=== PATIENT | female | born 1955 | race Caucasian/White ===

== ENCOUNTER 2022-02-09 11:00 | Emergency (ER) | payer MEDICARE, OTHER, SELFPAY ==
--- NOTE | 2022-02-09 11:01 | ED.SKABFB ---
HPI - Skin/Abscess/Foreign Bdy General Chief complaint: Wound/Laceration Stated complaint: insect bite Time Seen by Provider: 02/09/22 11:01 Source: patient Mode of arrival: ambulatory Limitations: no limitations History of Present Illness HPI narrative: Ms. Flores is a 66-year-old female patient presenting to the clinic today with complaints of possible insect bite to her right forearm that occurred yesterday. She reports she woke up yesterday morning and noticed a possible insect bite to the right forearm, redness around the bite began streaking down her arm yesterday afternoon and has become worse. She denies any fever or chills. Reports the area is itchy and mildly painful Related Data Home Medications Medication Instructions Recorded Confirmed cetirizine 10 mg tablet (Zyrtec) 10 mg PO DAILY 12/12/21 12/12/21 hydroxychloroquine 200 mg tablet 200 mg PO DAILY 12/12/21 12/12/21 (Plaquenil) meloxicam 15 mg tablet 15 mg PO DAILY 12/12/21 12/12/21 nifedipine 30 mg tablet,extended 30 mg PO DAILY 12/12/21 12/12/21 release omeprazole 20 mg capsule,delayed 20 mg PO DAILY 12/12/21 12/12/21 release Allergies Allergy/AdvReac Type Severity Reaction Status Date / Time codeine Allergy Unknown Vomiting Verified 12/12/21 16:35 Review of Systems Review of Systems: Pertinent positives per HPI. Patient denies any fever, chills, headache, visual changes, dizziness, cough, runny nose, sore throat, shortness of breath, chest pain, palpitations, nausea, vomiting, diarrhea, constipation, abdominal pain, or any urinary issues. [facility] Past Medical History Medical History Breast cancer Cholecystectomy planned Osteoporosis Surgical History Surgical History H/O bilateral mastectomy History of delivery Tubal ligation status Family History Family History Mother Cerebrovascular accident Family history of heart disease in male family member before age 55 Hypertension Father Hypertension Social History Social History (Reviewed 02/09/22 @ 11:02 by ROBERTO Pleitez Smoking status: Never smoker Alcohol intake: current Alcohol use details: socially Substance use: never Substance use type: does not use Additional occupation/education comments: billing Gender identity (if verbalized by the patient): Female Comments At the time of my signature, I reviewed and agree with the nursing past medical, surgical, social, and family history. There is no relevant family history pertinent to the patient complaint. Exam Narrative: General: Well-developed, well nourished, in no apparent distress Head: Normocephalic, atraumatic. Cardio: Regular rate and rhythm, s1 and s2 normal, no murmur appreciated. Resp: Clear to auscultation bilaterally, no rhonchi, rales, wheezing or rubs. Integumentary: [place], warm, and dry, intact without lesion, insect bite with area of induration approximately the size of a half dollar with localized redness and streaking down the anterior forearm. Tenderness to palpation and also itchy. Course Course Emergency Course: Portions of this record may have been created with voice recognition software. Level of Care: Express Care Visit Vital Signs Vital signs: Vital signs reviewed MDM - Skin/Abscess/Foreign Bdy MDM Narrative Medical decision making narrative: At the time of assessment patient is resting comfortably on the exam table. She has a insect bite to right forearm with localized redness and streaking. I will treat her with a course of prednisone to help alleviate the inflammation and itching as well as doxycycline for secondary infection. Supportive measures were discussed with the patient she voiced understanding of discharge instructions and agrees to treatment plan. Differential
[2022-02-09 11:09] VITALS: BP 168/88; PULSE 80; RESP 16; TEMP 36.7; O2SAT 99
== END 2022-02-09 11:20 | disposition home or self-care (01) ==
LOC: EXPCOLL 11:04
PROVIDERS: Emergency Provider Nurse Practitioner Family; PCP Physician Assistant
DX: S50.861A Insect bite (nonvenomous) of right forearm, initial encounter (principal); W57.XXXA Bitten or stung by nonvenomous insect and other nonvenomous arthropods, initial encounter; M81.0 Age-related osteoporosis without current pathological fracture; Z85.3 Personal history of malignant neoplasm of breast; Z90.13 Acquired absence of bilateral breasts and nipples
CPT/HCPCS: 99213; G0463

== ENCOUNTER 2022-05-03 18:58 | Emergency (ER) | payer MEDICARE, OTHER, SELFPAY ==
[2022-05-03 19:08] VITALS: BP 141/81; PULSE 84; RESP 16; TEMP 36.6; O2SAT 98
--- NOTE | 2022-05-03 19:45 | ED.SKABFB ---
HPI - Skin/Abscess/Foreign Bdy General Chief complaint: Skin/Abscess/Foreign Body Stated complaint: Bumps on Belly Button Time Seen by Provider: 05/03/22 19:18 Source: patient, RN notes reviewed and old records reviewed Mode of arrival: ambulatory Limitations: no limitations History of Present Illness HPI narrative: 66 year old female who presents to [place] [facility] with complaints of red lesions noted to naval today which are itchy states area noted yesterday to be blistery. has been applying hydrocortisone cream to area. Patient is concerned due to history of MRSA and scleroderma. MD complaint: lesion (naval) Onset (ago): day(s) (1) Treatments prior to arrival: other (hydrocortisone ointment) Related Data Home Medications Medication Instructions Recorded Confirmed cetirizine 10 mg tablet (Zyrtec) 10 mg PO DAILY 12/12/21 12/12/21 hydroxychloroquine 200 mg tablet 200 mg PO DAILY 12/12/21 12/12/21 (Plaquenil) meloxicam 15 mg tablet 15 mg PO DAILY 12/12/21 12/12/21 nifedipine 30 mg tablet,extended 30 mg PO DAILY 12/12/21 12/12/21 release omeprazole 20 mg capsule,delayed 20 mg PO DAILY 12/12/21 12/12/21 release ascorbate calcium (vitamin C) 02/09/22 cholecalciferol (vitamin D3) 02/09/22 Juice + 05/03/22 biotin 05/03/22 mecobalamin (vitamin B12) 05/03/22 Allergies Allergy/AdvReac Type Severity Reaction Status Date / Time codeine Allergy Unknown Vomiting Verified 05/03/22 19:02 Review of Systems Review of Systems: CONSTITUTIONAL: Denies fever, chills, or sweats. EYES: Denies visual changes, redness, or discharge. ENT: Denies rhinorrhea, congestion, sore throat, or otalgia. CARDIOVASCULAR: Denies chest pain, palpitations, or edema. RESPIRATORY: Denies cough or dyspnea. GASTROINTESTINAL: Denies abdominal pain, nausea, vomiting, or diarrhea. GENITOURINARY: Denies dysuria or hematuria. SKIN: positive for red lesions to naval area which are itchy, were more blistery yesterday MUSCULOSKELETAL: Denies back pain, joint pain, or myalgia. NEUROLOGIC: Denies headache, numbness, or weakness. PSYCHIATRIC: Denies anxiety or depression. All systems reviewed & are unremarkable except as noted in HPI and below PMFSH Past Medical History Medical History (Updated 05/07/22 @ 10:53 by Naty Bhandari NP) Breast cancer Cholecystectomy planned MRSA (methicillin resistant Staphylococcus aureus) infection Osteoporosis Scleroderma Surgical History Surgical History H/O bilateral mastectomy History of delivery Tubal ligation status Family History Family History Mother Cerebrovascular accident Family history of heart disease in male family member before age 55 Hypertension Father Hypertension Social History Social History Smoking status: Never smoker Alcohol intake: current Alcohol use details: socially Substance use: never Substance use type: does not use Additional occupation/education comments: billing Gender identity (if verbalized by the patient): Female Comments At time of signature, agree with nursing past medical, surgical, social and family history. There is no relevant family history pertinent to the presenting complaint Exam Narrative: GENERAL: Well-appearing, well-nourished, and in no acute distress. HEAD: Normocephalic, atraumatic. EYES: PERRLA and EOMI. ENT: Nares clear, no rhinorrhea or epistaxis. Mucous membranes moist.TM's normal with good light reflex, throat pink with no lesions or swelling NECK: Supple no lymphadenopathy CHEST: Clear to auscultation. No respiratory distress.SAO2 98% on room air HEART: Regular rate and rhythm. No murmur heard. Normal peripheral pulses. ABDOMEN: Soft, nontender, nondistended, normal active bowel sounds. EXTREMITIES: Normal range of motion. No edema. SKIN: Warm, dry, s
== END 2022-05-03 20:00 | disposition home or self-care (01) ==
PROVIDERS: Emergency Provider Registered Nurse; PCP Physician Assistant
DX: R21 Rash and other nonspecific skin eruption (principal); M81.0 Age-related osteoporosis without current pathological fracture; M34.9 Systemic sclerosis, unspecified; Z86.14 Personal history of Methicillin resistant Staphylococcus aureus infection; Z85.3 Personal history of malignant neoplasm of breast; Z90.13 Acquired absence of bilateral breasts and nipples
CPT/HCPCS: 99213; G0463

== ENCOUNTER 2023-07-09 01:12 | Day surgery (SDC) | payer MEDICARE, OTHER, SELFPAY ==
[2023-06-23 14:27] VITALS: BMI 29.0
--- NOTE | 2023-07-07 10:10 | SUR.PREOP ---
Patient called regarding upcoming procedure. Patient did not answer- message left with arrival time.
--- NOTE | 2023-07-08 15:10 | PM.HPGS ---
History of Present Illness History of Present Illness Consent: Risks, benefits, and alternatives have been discussed and questions answered. Patient agrees to proceed with procedure. Chief complaint: neoplasm screening Narrative: Chaparrita Flores is a 67 year old female referred for colon cancer screening. Her last colonoscopy was 12 years ago. It was unremarkable except for being tortuous. Review of Systems Review of Systems: All systems reviewed & are unremarkable except as noted in HPI and below PMFSH Past Medical History Medical History Breast cancer Cholecystectomy planned MRSA (methicillin resistant Staphylococcus aureus) infection Osteoporosis Scleroderma Surgical History Surgical History H/O bilateral mastectomy History of delivery Tubal ligation status Family History Family History Mother Cerebrovascular accident Family history of heart disease in male family member before age 55 Hypertension Father Hypertension Social History Social History Smoking status: Former smoker Tobacco type: cigarettes Alcohol intake: current Drinks per week: 3 Substance use: never Substance use type: does not use Living arrangements: with family 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 Gender identity (if verbalized by the patient): Female Spiritual care concerns: No Meds Home Medications and Allergies Home Medications Medication Instructions Recorded Confirmed Type cetirizine 10 mg tablet (Zyrtec) 10 mg PO DAILY 12/12/21 07/09/23 History hydroxychloroquine 200 mg tablet 200 mg PO BID 12/12/21 07/09/23 History (Plaquenil) meloxicam 15 mg tablet 15 mg PO DAILY 12/12/21 07/09/23 History nifedipine 30 mg tablet,extended 30 mg PO DAILY 12/12/21 07/09/23 History release omeprazole 20 mg capsule,delayed 20 mg PO BID 12/12/21 07/09/23 History release ascorbate calcium (vitamin C) 500 mg PO DAILY 02/09/22 07/09/23 History cholecalciferol (vitamin D3) 10,000 mcg PO DAILY 02/09/22 07/09/23 History Juice + 1 tablet PO DAILY 05/03/22 07/09/23 History biotin 1,000 mcg PO DAILY 05/03/22 07/09/23 History mecobalamin (vitamin B12) 1,000 mcg PO DAILY 05/03/22 07/09/23 History Allergies Allergy/AdvReac Type Severity Reaction Status Date / Time codeine AdvReac Unknown Vomiting Verified 07/09/23 06:19 Exam Const: General: alert Orientation/consciousness: patient oriented x3 Resp: Auscultation: clear to auscultation bilaterally Cardio: Rhythm: regular rhythm GI: GI Palp: Yes Soft to palpation and No Tenderness to palpation present (GI) Neuro: General: patient oriented x3 Assessment and Plan Assessment and plan (1) Colon cancer screening: Code(s): Z12.11 - Encounter for screening for malignant neoplasm of colon Status: Acute Assessment and Plan: Colonoscopy with possible biopsy or polypectomy or cautery or injection of substances.
[2023-07-09 06:23] VITALS: BP 132/49; PULSE 67; RESP 16; TEMP 36.4; O2SAT 100
[2023-07-09] MEDS: LACTATED RINGERS 1,000 ML 150 ML IV CONT (06:32)
--- NOTE | 2023-07-09 07:18 | WPDANESEPPF ---
Anes - Initial Pre Proc Eval Procedure: Operation Date: 07/09/23 07:30 Proposed Procedures p Screening Colonoscopy - Klaus Lucero MD Date/Time: 07/09/23 07:18 Surgeon: Klaus Lucero MD Pre Op Diagnosis: neoplasm screening Patient Data Age: 67 Gender: F Height: 1.57 m Weight: 67.6 kg Last Vital Signs Temp 97.6 F 07/09/23 06:23 Pulse 67 07/09/23 06:23 Resp 16 07/09/23 06:23 BP 132/49 L 07/09/23 06:23 Pulse Ox 100 07/09/23 06:23 O2 Del Method Room Air 07/09/23 06:23 Allergies Allergy/AdvReac Type Severity Reaction Status Date / Time codeine AdvReac Unknown Vomiting Verified 07/09/23 06:19 Home Medications Medication Instructions Recorded Confirmed Type cetirizine 10 mg tablet (Zyrtec) 10 mg PO DAILY 12/12/21 07/09/23 History hydroxychloroquine 200 mg tablet 200 mg PO BID 12/12/21 07/09/23 History (Plaquenil) meloxicam 15 mg tablet 15 mg PO DAILY 12/12/21 07/09/23 History nifedipine 30 mg tablet,extended 30 mg PO DAILY 12/12/21 07/09/23 History release omeprazole 20 mg capsule,delayed 20 mg PO BID 12/12/21 07/09/23 History release ascorbate calcium (vitamin C) 500 mg PO DAILY 02/09/22 07/09/23 History cholecalciferol (vitamin D3) 10,000 mcg PO DAILY 02/09/22 07/09/23 History Juice + 1 tablet PO DAILY 05/03/22 07/09/23 History biotin 1,000 mcg PO DAILY 05/03/22 07/09/23 History mecobalamin (vitamin B12) 1,000 mcg PO DAILY 05/03/22 07/09/23 History Patient hx anesthesia problems: none Family hx anesthesia problems: none Results Review: All pre-operative results and documents have been reviewed as part of the pre-operative evaluation. [facility] Past Medical History Medical History Breast cancer Cholecystectomy planned MRSA (methicillin resistant Staphylococcus aureus) infection Osteoporosis Scleroderma Surgical History Surgical History H/O bilateral mastectomy History of delivery Tubal ligation status Family History Family History Mother Cerebrovascular accident Family history of heart disease in male family member before age 55 Hypertension Father Hypertension Social History Social History Smoking status: Former smoker Tobacco type: cigarettes Alcohol intake: current Drinks per week: 3 Substance use: never Substance use type: does not use Living arrangements: with family 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 Gender identity (if verbalized by the patient): Female Spiritual care concerns: No Anes - Eval Final PreProcedure Day of Procedure 07/09/23 07:18 Patient weight: normal Heart: regular rate and rhythm Lungs: clear to auscultation Airway: Mallampati scale class II Neurological: alert and oriented Last oral intake: >/= 8 hours ASA classification: III Emergent: no Anesthetic plan: proceed Anesthesia type and monitoring: general GIVS and standard monitoring Results Review: All pre-operative results and documents have been reviewed as part of the pre-operative evaluation. Informed Consent: The patient's anesthetic plan and its attendant risks and benefits were discussed with the patient/family/POA. Questions were solicited and answers provided to the satisfaction of the patient/family/POA.
[2023-07-09 07:51] VITALS: BP 104/65; PULSE 74; RESP 20; O2SAT 100
[2023-07-09 08:01] VITALS: BP 105/72; PULSE 72; RESP 18; O2SAT 100
[2023-07-09 08:11] VITALS: BP 120/79; PULSE 68; RESP 18; O2SAT 100
== END 2023-07-09 08:18 | disposition home or self-care (01) ==
PROVIDERS: PCP Physician Assistant; Visit Provider Internal Medicine Gastroenterology
PROC: 0DJD8ZZ Inspection of Lower Intestinal Tract, Via Natural or Artificial Opening Endoscopic (ICD-10-PCS; CPT 45378; principal; 2023-07-09 07:30)
DX: Z12.11 Encounter for screening for malignant neoplasm of colon (principal); K64.4 Residual hemorrhoidal skin tags; M81.0 Age-related osteoporosis without current pathological fracture; Z87.891 Personal history of nicotine dependence; Z85.3 Personal history of malignant neoplasm of breast; Z87.39 Personal history of other diseases of the musculoskeletal system and connective tissue; Z90.13 Acquired absence of bilateral breasts and nipples; Z82.49 Family history of ischemic heart disease and other diseases of the circulatory system
CPT/HCPCS: G0121; J2704; J7120

== ENCOUNTER 2023-08-12 08:33 | Emergency (ER) | payer MEDICARE, OTHER, SELFPAY ==
--- NOTE | 2023-08-12 08:34 | ED.URI ---
HPI - URI/Sore Throat General Chief Complaint: Upper Respiratory Infection Stated Complaint: Sinus Time Seen by Provider: 08/12/23 08:34 Source: patient Mode of arrival: ambulatory Limitations: no limitations History of Present Illness HPI Narrative: Patient is a 67-year-old female that presents with 3 days of congestion, fever and slight cough. Patient has been taking DayQuil and NyQuil with moderate relief. Denies any nausea, vomiting, diarrhea. Related Data Home Medications Medication Instructions Recorded Confirmed cetirizine 10 mg tablet (Zyrtec) 10 mg PO DAILY 12/12/21 08/12/23 hydroxychloroquine 200 mg tablet 200 mg PO BID 12/12/21 08/12/23 (Plaquenil) meloxicam 15 mg tablet 15 mg PO DAILY 12/12/21 08/12/23 nifedipine 30 mg tablet,extended 30 mg PO DAILY 12/12/21 08/12/23 release omeprazole 20 mg capsule,delayed 20 mg PO BID 12/12/21 08/12/23 release ascorbate calcium (vitamin C) 500 mg PO DAILY 02/09/22 08/12/23 cholecalciferol (vitamin D3) 10,000 mcg PO DAILY 02/09/22 07/09/23 Juice + 1 tablet PO DAILY 05/03/22 08/12/23 biotin 1,000 mcg PO DAILY 05/03/22 08/12/23 mecobalamin (vitamin B12) 1,000 mcg PO DAILY 05/03/22 08/12/23 Allergies Allergy/AdvReac Type Severity Reaction Status Date / Time codeine AdvReac Unknown Vomiting Verified 08/12/23 08:44 Review of Systems Review of Systems: All systems reviewed & are unremarkable except as noted in HPI and below Constitutional: Constitutional: Denies body ache(s), Denies chills, Denies fatigue, Reports fever(s), Denies headache(s), Denies malaise and Denies weakness Eyes: Eyes: Denies blurry vision, Denies itchy eyes and Denies loss of vision ENT: Denies otalgia, Denies headache(s), Reports nasal congestion, Denies sinus pain and Denies sore throat Cardiovascular: Cardiovascular: Denies chest pain, Denies irregular heart rhythm and Denies dyspnea Respiratory: Respiratory: Reports cough and Denies dyspnea Gastrointestinal: Gastrointestinal: Denies abdominal pain, Denies diarrhea, Denies nausea and Denies vomiting Musculoskeletal: Musculoskeletal: Denies back pain, Denies myalgias and Denies arthralgias Integumentary/Breasts: Skin/Breast: Denies pruritus and Denies rash Neurologic: Denies headache(s), Denies loss of vision and Denies weakness Psychiatric: Psychiatric: Reports no additional psychiatric complaints Endocrine: Endocrine: Denies fatigue Allergic/Immunologic: Allergic/Immunologic: Denies itchy eyes PMFSH Past Medical History Medical History Breast cancer Cholecystectomy planned MRSA (methicillin resistant Staphylococcus aureus) infection Osteoporosis Scleroderma Surgical History Surgical History H/O bilateral mastectomy History of delivery Tubal ligation status Family History Family History Mother Cerebrovascular accident Family history of heart disease in male family member before age 55 Hypertension Father Hypertension Social History Social History Smoking status: Former smoker Tobacco type: cigarettes Alcohol intake: current Drinks per week: 3 Substance use: never Substance use type: does not use Living arrangements: with family 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 Gender identity (if verbalized by the patient): Female Spiritual care concerns: No Comments At time of signature, agree with nursing past medical, surgical, social and family history. There is no relevant family history pertinent to the presenting complaint. Exam Const: General: cooperative, healthy appearing, comfortable, no acute distress and well nourished Nutritional Appearance: well nourished Orientation/consciousness: patient oriented x3 [place]
[2023-08-12 08:43] VITALS: BP 143/69; PULSE 97; RESP 16; TEMP 38.9; O2SAT 99
[2023-08-12 08:44] VITALS: BP 143/69; PULSE 97; RESP 16; TEMP 38.9; O2SAT 99
== END 2023-08-12 09:10 | disposition home or self-care (01) ==
PROVIDERS: Emergency Provider Nurse Practitioner Family; PCP Physician Assistant
DX: J11.1 Influenza due to unidentified influenza virus with other respiratory manifestations (principal); Z85.3 Personal history of malignant neoplasm of breast; Z87.891 Personal history of nicotine dependence; Z20.822 Contact with and (suspected) exposure to COVID-19
CPT/HCPCS: 87426; 87804; 99213; C9803; G0463

== ENCOUNTER 2023-12-29 14:19 | Outpatient (CLI) | payer MEDICARE, OTHER, SELFPAY ==
[2023-12-29 14:57] LABS: Hematocrit 45.4 % (37.0-47.0); Hemoglobin 14.5 g/dL (12.0-15.0)
== END 2023-12-29 14:20 | disposition home or self-care (01) ==
LOC: ANHSURGERY 14:24
PROVIDERS: PCP Physician Assistant; Visit Provider Obstetrics & Gynecology
DX: Z01.818 Encounter for other preprocedural examination (principal); N95.0 Postmenopausal bleeding
CPT/HCPCS: 36415; 85014; 85018

== ENCOUNTER 2024-01-09 01:16 | Day surgery (SDC) | payer MEDICARE, OTHER, SELFPAY ==
[2023-12-25 12:50] VITALS: BMI 28.2
--- NOTE | 2023-12-25 13:15 | PC.NURSE ---
Report to the Outpatient Waiting Room, entrance under the green pavilion located off [facility], at time __7:30AM on date ___01/09/24____. Planned Procedure Time: __9:30AM . Time changes happen often and if your time is changed the preop area will call you the afternoon before. - You and your visitor will be asked to self-screen and do not enter if you have any COVID symptoms. - A mask is optional within the hospital at this time. Patients may have clear liquids (water, carbonated beverages, clear teas, apple juice) until 3 hours prior to surgery with a maximum of 20 ounces. - No food from midnight until time of surgery. Take the following medications with a SIP of water the morning of surgery: NIFEDIPINE DO NOT STOP ANY OF YOUR OTHER PRESCRIPTION MEDICATIONS PRIOR TO SURGERY ?EXCEPT THE FOLLOWING Medications to discontinue per physician HOLD ALL VITAMINS/SUPPLEMENTS 3 DAYS PRE-OP PER ANESTHESIA Date to take last dose 01/05/24 Please no make-up, nail indonesian, hairspray, perfume, deodorant, or body powder the day of surgery. No jewelry (including any body piercings) or valuables the day of surgery, leave them at home. Please take a shower or bath the night before, or the morning of, surgery with an antibacterial soap. Wear comfortable, loose fitting clothing. - Jewelry must be removed prior to entering the operating room. Rings and piercings that are not removed may be cut off. - The hospital will not accept responsibility for valuables. - Please leave all valuables, including medications, at home the day of surgery. If you are going home after surgery, a licensed light truck driver must drive you home. - NO public transportation without another adult if you receive anesthesia. - We recommend that an adult stay with you for 24 hours following discharge. - We also recommend that you do not drive, make important decision, drink alcoholic beverages, or take any drugs that were not prescribed by your health care provider for at least 24 hours after your discharge time. Follow any additional instructions given to you from your surgeon. If you or anyone in your household have experienced Covid symptoms in the past week, please notify your surgeon or the nurse liaison at the phone number below for possible testing. Telephone instructions given to ____PATIENT and asked if any additional questions and then verbalized understanding. Patient advised to call surgeon office or pre surgery nurse liaison [phone] if any additional questions.
--- NOTE | 2024-01-06 06:44 | PM.IMHP ---
H&P: HPI History of Present Illness Date/Time: 01/06/24 06:44 Chief Complaint: postmenopausal bleed Narrative: 68-year-old female with thickened endometrium imaging. Patient admitted for hysteroscopy dilatation curettage. Risks and benefits reviewed including but not exclusive of , aspiration went for bleeding, transfusion, perforation to bowel, bladder, ureters, or other internal organs the need for open laparotomy. She received the [employer] handouts entitled hysteroscopy as well as dilatation curettage. She had all questions answered. She asked to proceed PMFSH Past Medical History Medical History Breast cancer Cholecystectomy planned MRSA (methicillin resistant Staphylococcus aureus) infection Osteoporosis Scleroderma Surgical History Surgical History H/O bilateral mastectomy History of delivery Tubal ligation status Family History Family History Mother Cerebrovascular accident Family history of heart disease in male family member before age 55 Hypertension Father Hypertension Social History Social History Smoking packs per day: 0.5 Smoking cigarettes per day: 10.0 Years smoked: 4 Smoking pack-years: 2.00 Smoking status: Former smoker Tobacco type: cigarettes Smoking end date: 02/09/76 Alcohol intake: current Drinks per week: 3 Substance use: never Substance use type: does not use Living arrangements: with family Additional living arrangements comments: HUSB & GRANDSON 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 Gender identity (if verbalized by the patient): Female Spiritual care concerns: No Meds Home Medications and Allergies Home Medications Medication Instructions Recorded Confirmed Type cetirizine 10 mg tablet (Zyrtec) 10 mg PO DAILY 12/12/21 12/25/23 History hydroxychloroquine 200 mg tablet 200 mg PO BID 12/12/21 12/25/23 History (Plaquenil) meloxicam 15 mg tablet 15 mg PO DAILY 12/12/21 12/25/23 History nifedipine 30 mg tablet,extended 30 mg PO QAM 12/12/21 12/25/23 History release omeprazole 20 mg capsule,delayed 20 mg PO BID 12/12/21 12/25/23 History release Lactobacillus 1 cap PO DAILY 12/25/23 12/25/23 History acidophilus-Bifidobac.animalis 2.5 billion cell capsule (Daily Probiotic) ascorbic acid (vitamin C) 500 mg 500 mg PO DAILY 12/25/23 12/25/23 History capsule biotin 1,000 mcg chewable tablet 1,000 mcg PO DAILY 12/25/23 12/25/23 History cholecalciferol (vitamin D3) 250 250 mcg PO DAILY 12/25/23 12/25/23 History mcg (10,000 unit) capsule cyanocobalamin (vitamin B-12) 1,000 mcg PO DAILY 12/25/23 12/25/23 History 1,000 mcg capsule nutritional supplement-fiber oral 1 ea PO DAILY 12/25/23 12/25/23 History liquid Allergies Allergy/AdvReac Type Severity Reaction Status Date / Time codeine AdvReac Unknown Vomiting Verified 12/25/23 12:45 Exam Const: General: cooperative, healthy appearing, comfortable and average body habitus Orientation/consciousness: oriented to person, oriented to place and oriented to time HENMT: Head: normal to inspection Resp: Effort & Inspection: normal respiratory effort Cardio: Rate: regular rate Rhythm: regular rhythm Heart sounds: S1 normal heart sound present and S2 normal heart sound present GI: Inspection: normal to inspection : External Female Exam: normal external appearance Speculum Exam - Vagina: normal appearance of the vagina Speculum Exam - Cervix: normal appearance of the cervix Bimanual exam- vagina & uterus: uterine shape normal Bimanual Exam- Adnexa, other: normal adnexae Assessment and Plan Assessment and plan (1) Postmenopausal bleeding: Code(s): N95.0 - Pos
--- NOTE | 2024-01-09 05:38 | WPDHPUPDATE1 ---
History and Physical Update Update Date/Time: 01/09/24 05:38 History and Physical has been reviewed, including an updated exam of the patient. There are NO changes in the patient's condition. Risks, benefits, and alternatives have been discussed and questions answered. Patient agrees to proceed with procedure.
--- NOTE | 2024-01-09 07:29 | WPDANESEPPF ---
Anes - Initial Pre Proc Eval Procedure: Operation Date: 01/09/24 09:30 Proposed Procedures p Hysteroscopy Dilation and Curettage - Felipe Alvarez MD Date/Time: 01/09/24 07:29 Surgeon: Felipe Alvarez MD Pre Op Diagnosis: post menopausal bleeding, pain Patient Data Age: 68 Gender: F Height: 1.57 m Weight: 70 kg Allergies Allergy/AdvReac Type Severity Reaction Status Date / Time codeine AdvReac Unknown Vomiting Verified 12/25/23 12:45 Home Medications Medication Instructions Recorded Confirmed Type cetirizine 10 mg tablet (Zyrtec) 10 mg PO DAILY 12/12/21 12/25/23 History hydroxychloroquine 200 mg tablet 200 mg PO BID 12/12/21 12/25/23 History (Plaquenil) meloxicam 15 mg tablet 15 mg PO DAILY 12/12/21 12/25/23 History nifedipine 30 mg tablet,extended 30 mg PO QAM 12/12/21 12/25/23 History release omeprazole 20 mg capsule,delayed 20 mg PO BID 12/12/21 12/25/23 History release Lactobacillus 1 cap PO DAILY 12/25/23 12/25/23 History acidophilus-Bifidobac.animalis 2.5 billion cell capsule (Daily Probiotic) ascorbic acid (vitamin C) 500 mg 500 mg PO DAILY 12/25/23 12/25/23 History capsule biotin 1,000 mcg chewable tablet 1,000 mcg PO DAILY 12/25/23 12/25/23 History cholecalciferol (vitamin D3) 250 250 mcg PO DAILY 12/25/23 12/25/23 History mcg (10,000 unit) capsule cyanocobalamin (vitamin B-12) 1,000 mcg PO DAILY 12/25/23 12/25/23 History 1,000 mcg capsule nutritional supplement-fiber oral 1 ea PO DAILY 12/25/23 12/25/23 History liquid Patient hx anesthesia problems: none Family hx anesthesia problems: none Results Review: All pre-operative results and documents have been reviewed as part of the pre-operative evaluation. [facility] Past Medical History Medical History Breast cancer Cholecystectomy planned MRSA (methicillin resistant Staphylococcus aureus) infection Osteoporosis Scleroderma Surgical History Surgical History H/O bilateral mastectomy History of delivery Tubal ligation status Family History Family History Mother Cerebrovascular accident Family history of heart disease in male family member before age 55 Hypertension Father Hypertension Social History Social History Smoking packs per day: 0.5 Smoking cigarettes per day: 10.0 Years smoked: 4 Smoking pack-years: 2.00 Smoking status: Former smoker Tobacco type: cigarettes Smoking end date: 02/09/76 Alcohol intake: current Drinks per week: 3 Substance use: never Substance use type: does not use Living arrangements: with family Additional living arrangements comments: HUSB & GRANDSON 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
[2024-01-09 07:45] VITALS: BP 136/68; PULSE 74; RESP 16; TEMP 37.3; O2SAT 100
[2024-01-09] MEDS: LACTATED RINGERS 1,000 ML 30 ML IV CONT (07:45)
[2024-01-09] MEDS: ACETAMINOPHEN 500 MG TABLET 1000 MG PO (08:19)
[2024-01-09] MEDS: LIDOCAINE HCL 1% LOCAL INJ 10 ML VIAL INFILTRATE (09:27)
[2024-01-09] MEDS: KETOROLAC 15 MG/ML VIAL (*BKC) IV PUSH (09:33)
[2024-01-09 09:39] VITALS: BP 111/59; PULSE 74; RESP 14; O2SAT 98
--- NOTE | 2024-01-09 09:41 | W.PM.PROC2 ---
Procedure Note - Detailed Date of Procedure 01/09/24 Pre-op Diagnosis post menopausal bleeding, pain Post-op Diagnosis Same Procedure Performed Hysteroscopy / dilatation curettage Surgeon Felipe Alvarez MD Anesthesia MAC and Local Indications 68-year-old female with postmenopausal bleeding Findings very benign atrophic endometrial tissue was expected for a woman of this age Description of Procedure patient was prepped draped in the normal sterile fashion placed in the dorsal lithotomy position. Under excellent IV sedation weighted speculum placed in posterior fornix vagina. Anterior lip of the cervix grasped with single-tooth tenaculum. 2.5cc 1% xylocaine anesthesia placed at 2, 4, 8, 10:00 a.m. of the cervix. Uterus sounded to 8cm. Serial dilatation with fragmented dilators performed followed passes the 5mm visualizing hysteroscope. Normal saline was used as visualizing medium. A small area of mucus was noted which might account for what was seen on the ultrasound. Each fallopian tube os could be seen and very benign atrophic endometrium was seen as expected for a woman of this age. Uterus scraped over the entire 360? removing minimal tissue was expected. The instruments withdrawn the patient was awakened. She went to recovery in satisfactory condition. Sponge, needle, instrument correct. There were no immediate complications Estimated Blood Loss 5 Drains No Packing No Pathology Yes Complications No immediate complications Condition Stable Disposition PACU
[2024-01-09 10:00] VITALS: BP 112/62; PULSE 76; RESP 14
[2024-01-09] MEDS: ONDANSETRON INJ 4 MG/2 ML VIAL IV PUSH (10:04)
[2024-01-09 10:30] VITALS: BP 125/67; PULSE 75; RESP 16
== END 2024-01-09 10:40 | disposition home or self-care (01) ==
PROVIDERS: PCP Physician Assistant; Visit Provider Obstetrics & Gynecology
PROC: 0U5B8ZZ Destruction of Endometrium, Via Natural or Artificial Opening Endoscopic (ICD-10-PCS; CPT 58563; principal; 2024-01-09 09:30)
DX: N95.0 Postmenopausal bleeding (principal); N84.0 Polyp of corpus uteri; M34.9 Systemic sclerosis, unspecified; M81.0 Age-related osteoporosis without current pathological fracture; Z86.14 Personal history of Methicillin resistant Staphylococcus aureus infection; Z85.3 Personal history of malignant neoplasm of breast; Z87.891 Personal history of nicotine dependence
CPT/HCPCS: 58558; 88305; A9270; J1100; J1885; J2405; J2704; J3010; J7120

== ENCOUNTER 2024-05-03 15:34 | Outpatient (CLI) | payer MEDICARE, OTHER, SELFPAY ==
--- NOTE | 2024-05-03 | ECHO_ITS ---
Patient Info Name: Chaparrita Flores Age: 68 years : 1955 Gender: Female Ht: 61 in Wt: 154 lbs BSA: 1.76 m2 HR: 87 bpm BP: 142 / 90 mmHg Heart Rhythm: Sinus Rhythm Technical Quality: Fair Exam Date: 05/03/2024 4:06 PM Exam Location: Echo Lab Patient Status: Outpatient Admit Date: 05/03/2024 Staff Ordering Physician: NadineKristin PA-C Base Filler Operator: Gerri Jett RDCS Attending Provider: Leah*Kristin Jung PA-C Exam Type: CA echo doppler color flow Study Info Indications R07.89 - Other chest pain Complete two-dimensional, color flow and Doppler transthoracic echocardiogram is performed. Summary 1. Left ventricular chamber dimension is normal. 2. Left ventricular systolic function is normal, estimated at 60-65%. 3. The left ventricular diastolic function is grade I diastolic dysfunction. 4. Right ventricular systolic function is normal. 5. There is mild tricuspid valve regurgitation. 6. There is trivial pericardial effusion. Left Ventricle Left ventricular chamber dimension is normal. Left ventricular systolic function is normal, estimated at 60-65%. There is no increased left ventricular wall thickness. The left ventricular diastolic function is grade I diastolic dysfunction. Right Ventricle Right ventricular chamber dimension is normal. Right ventricular systolic function is normal. Left Atria Left atrial chamber dimension is normal. Right Atria Right atrial chamber dimension is normal. Atrial Septum Intact interatrial septum visualized by color flow imaging. Aortic Valve The aortic valve is probable trileaflet. There is no aortic valve stenosis. There is no aortic valve regurgitation. There is mild aortic valve calcification. Pulmonic Valve The pulmonic valve is not well visualized. There is no pulmonic regurgitation. Mitral Valve There is trace mitral valve regurgitation. The mitral valve annulus is mildly calcified. Tricuspid Valve There is mild tricuspid valve regurgitation. Pericardium/Pleural There is trivial pericardial effusion. Inferior Vena Cava Normal inferior vena cava with >50% collapse upon inspiration consistent with normal right atrial pressure, 3 mmHg. Aorta The aortic root size at the sinus of Valsalva is normal. Left Ventricular Outflow Tract Name Value Normal LVOT 2D LVOT Diameter 1.9 cm LVOT Doppler LVOT Peak Gradient 7 mmHg LVOT Mean Gradient 3 mmHg LVOT VTI 24 cm LVOT VTI/AV VTI Ratio 0.9 LVOT Stroke Volume 69 ml LVOT CO 4.8 l/min LVOT CI 2.7 l/min/m2 Pulmonic Valve Name Value Normal PV Doppler PV Peak Gradient 2 mmHg Mitral Valve Name Value No
== END 2024-05-03 15:35 | disposition home or self-care (01) ==
LOC: ANHCARD 15:46
PROVIDERS: PCP Physician Assistant; Visit Provider Physician Assistant
DX: I50.30 Unspecified diastolic (congestive) heart failure (principal); I07.1 Rheumatic tricuspid insufficiency; R07.89 Other chest pain
CPT/HCPCS: 93306

== ENCOUNTER 2024-07-23 00:03 | Day surgery (SDC) | payer MEDICARE, OTHER, SELFPAY ==
[2024-07-13 12:05] VITALS: BMI 29.5
[2024-07-23 09:59] VITALS: BP 149/67; PULSE 76; RESP 17; TEMP 36.8; O2SAT 98
[2024-07-23] MEDS: LACTATED RINGERS 1,000 ML 150 ML IV CONT (10:07)
--- NOTE | 2024-07-23 10:18 | WPDANESEPPF ---
Anes - Initial Pre Proc Eval Procedure: Operation Date: 07/23/24 11:00 Proposed Procedures p Esophagogastroduodenoscopy - Moy Larsen MD Date/Time: 07/23/24 10:18 Surgeon: Moy Larsen MD Pre Op Diagnosis: dysphagia Patient Data Age: 68 Gender: F Height: 1.55 m Weight: 65.1 kg Last Vital Signs Temp 36.8 C 07/23/24 09:59 Pulse 76 07/23/24 09:59 Resp 17 07/23/24 09:59 BP 149/67 H 07/23/24 09:59 Pulse Ox 98 07/23/24 09:59 O2 Del Method Room Air 07/23/24 09:59 Allergies Allergy/AdvReac Type Severity Reaction Status Date / Time codeine AdvReac Unknown Vomiting Verified 07/23/24 09:56 Home Medications ?Medication ?Instructions ?Recorded ?Confirmed ?Type cetirizine 10 mg tablet (Zyrtec) 10 mg PO DAILY 12/12/21 07/23/24 History hydroxychloroquine 200 mg tablet 200 mg PO BID 12/12/21 07/23/24 History (Plaquenil) meloxicam 15 mg tablet 15 mg PO DAILY 12/12/21 07/23/24 History nifedipine 30 mg tablet,extended 30 mg PO QAM 12/12/21 07/23/24 History release omeprazole 20 mg capsule,delayed 20 mg PO BID 12/12/21 07/23/24 History release Lactobacillus 1 cap PO DAILY 12/25/23 07/23/24 History acidophilus-Bifidobac.animalis 2.5 billion cell capsule (Daily Probiotic) ascorbic acid (vitamin C) 500 mg 500 mg PO DAILY 12/25/23 07/23/24 History capsule biotin 1,000 mcg chewable tablet 1,000 mcg PO DAILY 12/25/23 07/23/24 History cholecalciferol (vitamin D3) 250 250 mcg PO DAILY 12/25/23 07/23/24 History mcg (10,000 unit) capsule cyanocobalamin (vitamin B-12) 1,000 mcg PO DAILY 12/25/23 07/23/24 History 1,000 mcg capsule nutritional supplement-fiber oral 1 ea PO DAILY 12/25/23 07/23/24 History liquid Patient hx anesthesia problems: none Family hx anesthesia problems: none Results Review: All pre-operative results and documents have been reviewed as part of the pre-operative evaluation. [facility] Past Medical History Medical History MRSA (methicillin resistant Staphylococcus aureus) infection Scleroderma Cholecystectomy planned Osteoporosis Breast cancer Surgical History Surgical History Tubal ligation status History of delivery H/O bilateral mastectomy Family History Family History Mother Cerebrovascular accident Family history of heart disease in male family member before age 55 Hypertension Father Hypertension Social History Social History Smoking packs per day: 0.5 Smoking cigarettes per day: 10.0 Years smoked: 4 Smoking pack-years: 2.00 Smoking status: Former smoker Tobacco type: cigarettes Smoking end date: 02/09/76 Alcohol intake: current Drinks per week: 3 Substance use: never Substance use type: does not use Living arrangements: with family Additional living arrangements comments: HUSB & GRANDLUCINA 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 Informed Consent: The patient's anesthetic plan and its attendant risks and benefits were discussed with the patient/family/POA. Questions were solicited and answers provided to the satisfaction of the patient/family/POA.
--- NOTE | 2024-07-23 10:26 | PM.HPGS ---
History of Present Illness History of Present Illness Consent: Risks, benefits, and alternatives have been discussed and questions answered. Patient agrees to proceed with procedure. Chief complaint: dysphagia Narrative: Chaparrita Flores is a 68 year old female with gerd on omeprazole Review of Systems Review of Systems: All systems reviewed & are unremarkable except as noted in HPI and below PMFSH Past Medical History Medical History (Updated 07/23/24 @ 10:27 by Moy Larsen MD) GERD (gastroesophageal reflux disease) MRSA (methicillin resistant Staphylococcus aureus) infection Scleroderma Cholecystectomy planned Osteoporosis Breast cancer Surgical History Surgical History Tubal ligation status History of delivery H/O bilateral mastectomy Family History Family History Mother Cerebrovascular accident Family history of heart disease in male family member before age 55 Hypertension Father Hypertension Social History Social History Smoking packs per day: 0.5 Smoking cigarettes per day: 10.0 Years smoked: 4 Smoking pack-years: 2.00 Smoking status: Former smoker Tobacco type: cigarettes Smoking end date: 02/09/76 Alcohol intake: current Drinks per week: 3 Substance use: never Substance use type: does not use Living arrangements: with family Additional living arrangements comments: HUSB & GRANDSON 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 Gender identity (if verbalized by the patient): Female Spiritual care concerns: No Meds Home Medications and Allergies Home Medications ?Medication ?Instructions ?Recorded ?Confirmed ?Type cetirizine 10 mg tablet (Zyrtec) 10 mg PO DAILY 12/12/21 07/23/24 History hydroxychloroquine 200 mg tablet 200 mg PO BID 12/12/21 07/23/24 History (Plaquenil) meloxicam 15 mg tablet 15 mg PO DAILY 12/12/21 07/23/24 History nifedipine 30 mg tablet,extended 30 mg PO QAM 12/12/21 07/23/24 History release omeprazole 20 mg capsule,delayed 20 mg PO BID 12/12/21 07/23/24 History release Lactobacillus 1 cap PO DAILY 12/25/23 07/23/24 History acidophilus-Bifidobac.animalis 2.5 billion cell capsule (Daily Probiotic) ascorbic acid (vitamin C) 500 mg 500 mg PO DAILY 12/25/23 07/23/24 History capsule biotin 1,000 mcg chewable tablet 1,000 mcg PO DAILY 12/25/23 07/23/24 History cholecalciferol (vitamin D3) 250 250 mcg PO DAILY 12/25/23 07/23/24 History mcg (10,000 unit) capsule cyanocobalamin (vitamin B-12) 1,000 mcg PO DAILY 12/25/23 07/23/24 History 1,000 mcg capsule nutritional supplement-fiber oral 1 ea PO DAILY 12/25/23 07/23/24 History liquid Allergies Allergy/AdvReac Type Severity Reaction Status Date / Time codeine AdvReac Unknown Vomiting Verified 07/23/24 09:56 Vital Signs Vital Signs - 24 hr 07/23/24 09:59 Temperature 98.2 F Pulse Rate 76 Respiratory Rate 17 Blood Pressure 149/67 H Pulse Oximetry 98 Oxygen Delivery Room Air Exam Const: General: comfortable and no acute distress HENMT: Face/Nose/Sinus: Normal nares present Eyes: General: appearance normal, both eyes and all related structures Neck: Neck: no JVD Resp: Auscultation: clear to auscultation bilaterally Cardio: Rate: regular rate Rhythm: regular rhythm GI: Inspection: non-distended GI Palp: Yes Soft to palpation Skin: General skin exam: normal color Neuro: General: gait normal Speech: normal speech Extrem: General: normal to inspection Psych: Mental Status: mental status grossly normal Assessment and Plan Assessment and plan (1) GERD (gastroesophageal reflux disease): Code(s): K21.9 - Gastro-esophageal reflux disease without esophagitis Status: Acute Assessment and Plan: egd
[2024-07-23 10:32] VITALS: BP 115/58; PULSE 64; RESP 17; O2SAT 96
[2024-07-23 10:42] VITALS: BP 128/57; PULSE 64; RESP 21; O2SAT 96
[2024-07-23 10:52] VITALS: BP 136/72; PULSE 64; RESP 17; O2SAT 100
== END 2024-07-23 11:04 | disposition home or self-care (01) ==
PROVIDERS: PCP Physician Assistant; Visit Provider Internal Medicine Gastroenterology
PROC: 0DJ08ZZ Inspection of Upper Intestinal Tract, Via Natural or Artificial Opening Endoscopic (ICD-10-PCS; CPT 43235; principal; 2024-07-23 11:00)
DX: K21.9 Gastro-esophageal reflux disease without esophagitis (principal); R13.10 Dysphagia, unspecified; Z87.891 Personal history of nicotine dependence
CPT/HCPCS: 43239; 88305; J2704; J7120

== ENCOUNTER 2025-06-21 09:40 | Outpatient (CLI) | payer MEDICARE, OTHER, SELFPAY ==
--- NOTE | ~2025-06-21 | US_ITS ---
EXAMINATION: US soft tissue head and neck, 06/21/2025 9:45 DEVELOPMENTAL SPECIALIST HISTORY: Swelling of clavicular region Comparison: None Technique: Del Cid-scale and color Doppler images were obtained. Findings: Correlating with the palpable area there is a solid appearing focus measuring 1.7 x 0.6 x 1.8 cm with adjacent similar focus 8 x 5 x 13 mm, there is no abnormal flow identified. IMPRESSION: Probable subcutaneous lipomas. If there is pain or clinical concern correlate with CT or MRI Reviewed, dictated and finalized at location P. LOPMENTAL SPECIALIST
== END 2025-06-21 09:41 | disposition home or self-care (01) ==
LOC: MICIMG 09:41
PROVIDERS: PCP Physician Assistant; Visit Provider Physician Assistant
DX: M79.89 Other specified soft tissue disorders (principal)
CPT/HCPCS: 76536

== ENCOUNTER 2025-07-11 11:20 | Outpatient (CLI) | payer MEDICARE, OTHER, SELFPAY ==
--- NOTE | ~2025-07-11 | CT_ITS ---
EXAMINATION: CT soft tissue neck w con DATE: 07/11/2025 12:09 INDICATION: Mass of soft tissue of neck. TECHNIQUE: Computed tomography (CT) of the neck was performed with 75 mL Omnipaque-350 intravenous contrast. Automated exposure control and iterative reconstruction technique were employed. The dose-length product was 413.74 mGy-cm. COMPARISON: Ultrasound 06/21/2025 FINDINGS: There is mild peripheral fibrosis in anterior right lung. There are no pathologically enlarged lymph nodes. The pharynx and larynx are normal. There is a 1.7 x 0.7 cm subcutaneous lipoma in left supraclavicular region. A skin marker overlies this area. The mastoid air cells are normal. The paranasal sinuses are clear. There is cervical kyphosis and severe spondylosis. IMPRESSION: 1. Subcutaneous lipoma in left supraclavicular region. Reviewed, dictated and finalized at location E. ER OPERATOR / GRADER
[2025-07-11 11:49] LABS: Estimated Glomerular Filt Rate > 60
== END 2025-07-11 11:21 | disposition home or self-care (01) ==
LOC: MICIMG 11:20
PROVIDERS: PCP Physician Assistant; Visit Provider Physician Assistant
DX: D17.0 Benign lipomatous neoplasm of skin and subcutaneous tissue of head, face and neck (principal)
CPT/HCPCS: 70491; Q9967